=== PATIENT | female | born 1980 | race Caucasian/White ===

== ENCOUNTER → 2017-03-06 | Outpatient (CLI) | payer BC, OTHER ==
[~2017-03-06] MED LIST: CETI10CA PO; HYDR-3583 PO; LEVA15HF2 IH
== END ==
DX: N83.202 Unspecified ovarian cyst, left side (principal); N93.8 Other specified abnormal uterine and vaginal bleeding

== ENCOUNTER → 2018-03-06 | Outpatient (CLI) | payer BC, OTHER ==
--- NOTE | 2018-03-06 13:23 | Diagnostic Imaging Report ---
PROCEDURE: US Non-OB pelvis comp/trans. TECHNIQUE: Multiple real-time grayscale images were obtained of the pelvis in various projections endovaginally. Transabdominal imaging was also performed. INDICATION: Abnormal uterine bleeding. FINDINGS: The uterus measures 7.7 x 5.3 x 3.9 cm. The endometrium is 6 mm in thickness. No uterine mass is identified. The right ovary measures 3.1 x 2.9 x 1.8 cm, and the left ovary measures 5.5 x 3.0 x 2.3 cm. The left ovary does contain a septated cyst measuring approximately 4.6 x 2.1 x 2.9 cm. No other adnexal mass is seen. There is no free fluid. IMPRESSION: 4.6 cm septated left ovarian cyst. Followup ultrasound in 4-6 weeks is recommended to confirm stability and/or clearing. Dictated by: Dictated on workstation # [id number]
== END ==
LOC: RAD 12:24
PROVIDERS: ATTEND Family Medicine
DX: N83.292 Other ovarian cyst, left side (principal)
CPT/HCPCS: 76830; 76856

== ENCOUNTER → 2018-05-27 | Outpatient (CLI) | payer BC ==
--- NOTE | 2018-05-27 14:14 | Diagnostic Imaging Report ---
PROCEDURE: US Non-ob pelvis comp/trans. TECHNIQUE: Multiple realtime grayscale images were obtained of the pelvis in various projections endovaginally. Transabdominal imaging was also performed. INDICATION: Followup septated left ovarian cyst. COMPARISON: Correlation is made with pelvic ultrasound from 03/06/2018. FINDINGS: The uterus measures 7.2 x 5.5 x 3.8 cm. Endometrium is 4 mm in thickness. No uterine mass is identified. The right ovary measures 4.3 x 1.9 x 1.9 cm and the left ovary measures 3.5 x 2.3 x 2.2 cm. Right ovary is unremarkable and demonstrates blood flow. The previously noted cyst involving the left ovary has decreased in size, now measuring 1.9 x 1.3 x 1.8 cm compared with 4.6 x 2.1 x 2.9 cm. There is blood flow to the left ovary. No other adnexal mass or free fluid is seen. IMPRESSION: Decrease in size of left ovarian cyst when compared with examination from 03/06/2018. Dictated by: Dictated on workstation # [id number]
== END ==
LOC: RAD 12:41
PROVIDERS: ATTEND Family Medicine
DX: N83.292 Other ovarian cyst, left side (principal)
CPT/HCPCS: 76830; 76856

== ENCOUNTER → 2019-01-07 | Outpatient (CLI) | payer BC ==
--- NOTE | 2019-01-07 15:39 | Diagnostic Imaging Report ---
PROCEDURE: US non-OB pelvis comp/trans. TECHNIQUE: Multiple real-time grayscale images were obtained of the pelvis in various projections endovaginally. Transabdominal imaging was also performed. INDICATION: Abnormal uterine bleeding. COMPARISON: Comparison is made with prior pelvic ultrasound from 05/27/2018. FINDINGS: Uterus measures 10.2 x 5.1 x 4.8 cm. No myometrial mass is seen. Endometrium is 11 mm in thickness. The right ovary measures 3.1 x 3.0 x 2.0 cm, and the left ovary measures 4.1 x 2.8 x 2.8 cm. There is a septated cystic mass in the left ovary measuring 2.8 x 1.8 x 2.7 cm. Cyst at this location on prior study measured approximately 1.8 cm in diameter. Right ovary is unremarkable. There is blood flow to the ovaries. No free fluid is seen. IMPRESSION: Septated cystic mass in the left ovary, increased in size when compared with prior ultrasound from 05/27/2018. Dictated by: Dictated on workstation # [id number]
== END ==
LOC: RAD 13:01
PROVIDERS: ATTEND Family Medicine
DX: N83.202 Unspecified ovarian cyst, left side (principal)
CPT/HCPCS: 76830; 76856

== ENCOUNTER 2019-03-26 11:37 | Outpatient (CLI) | payer BC ==
[~2019-03-26] VITALS: Ht 167.6 cm; Wt 98.4 kg
[2019-03-26 11:47] VITALS: BP 134/83
[2019-03-26 12:08] LABS: BASOPHILS % (AUTO) 0 % (0-10); EOSINOPHILS # (AUTO) 0.1 10^3/uL (0.0-0.3); EOSINOPHILS % (AUTO) 1 % (0-10); HEMATOCRIT 37 % (35-52); HEMOGLOBIN 12.7 G/DL (11.5-16.0); LYMPHOCYTES # (AUTO) 2.3 X 10^3 (1.0-4.0); LYMPHOCYTES % (AUTO) 21 % (12-44); MEAN CORPUSCULAR HEMOGLOBIN 30 PG (25-34); MEAN CORPUSCULAR HGB CONC 34 G/DL (32-36); MEAN CORPUSCULAR VOLUME 87 FL (80-99); MEAN PLATELET VOLUME 10.2 FL (7.4-10.4); MONOCYTES # (AUTO) 0.8 X 10^3 (0.0-1.0); MONOCYTES % (AUTO) 8 % (0-12); NEUTROPHILS # (AUTO) 7.4 X 10^3 (1.8-7.8); NEUTROPHILS % (AUTO) 70 % (42-75); PLATELET COUNT 293 10^3/uL (130-400); RED CELL DISTRIBUTION WIDTH 12.7 % (10.0-14.5); WHITE BLOOD COUNT 10.6 10^3/uL (4.3-11.0)
[2019-03-26] MEDS ORDERED: CHOL200059 PO (13:17)
[2019-03-26] MEDS ORDERED: MONT10TA24 PO (13:17)
[2019-03-26] MEDS ORDERED: FERR325T5 PO (13:17)
[2019-03-26] MEDS ORDERED: CETI10TA17 PO (13:17)
[2019-03-26] MEDS ORDERED: MULT-141 PO (13:17)
[2019-04-01] MEDS ORDERED: HYDR-34 PO (07:27)
[2019-04-01] MEDS ORDERED: SIME80TA16 PO (07:27)
[2019-04-01] MEDS ORDERED: DOCU100C37 PO (07:27)
[2019-04-01] MEDS ORDERED: IBUP-844 PO (07:27)
== END 2019-03-26 12:05 | disposition home or self-care (01) ==
LOC: PREOP 11:37
PROVIDERS: ATTEND Obstetrics & Gynecology
DX: Z01.812 Encounter for preprocedural laboratory examination (principal); N93.8 Other specified abnormal uterine and vaginal bleeding; N85.2 Hypertrophy of uterus; N94.6 Dysmenorrhea, unspecified
CPT/HCPCS: 36415; 85025; 86850; 86870; 86900; 86901; 86902; 87081

== ENCOUNTER 2019-04-01 06:20 | Day surgery (SDC) | payer BC ==
[~2019-04-01] VITALS: Ht 167.6 cm; Wt 98.4 kg
[2019-04-01] VITALS (13 sets, daily range): BP systolic 102–142; BP diastolic 60–88
[~2019-04-01 06:20] MED LIST changes: +BUPIVACAINE 0.25% 30 ML (SENSORCAINE) VIAL ONE; +CETI10TA17 PO; +CHOL200059 PO; +FERR325T5 PO; +MONT10TA24 PO; +MULT-141 PO
[2019-04-01] MEDS ORDERED: LACTATED RINGERS 1,000 ML IV ONE (06:22)
[2019-04-01] MEDS ORDERED: metroNIDAZOLE 500MG/100ML IVPB 100 ML IV ONE (06:30)
[2019-04-01] MEDS ORDERED: ceFAZolin 2 GM/50 ML NS 50 ML IV ONE (06:30)
--- OUTSIDE RECORDS SUMMARY | 2019-04-01 06:42 | XMS REPORT | Continuity of Care Document ---
Author Organization Unknown Address Unknown Allergies Active Description Code Type Severity Reaction Onset Reported/Identified Relationship to Patient Clinical Status Yes Sulfa (Sulfonamide Antibiotics) [id number] Drug Allergy Unknown N/A 12/24/2007 Yes latex [id number] Drug Allergy Unknown N/A 12/25/2010 Medications There is no data. Problems Date Dx Coded Attending Type Code Diagnosis Diagnosed By 06/26/2009 Ot 648.91 06/26/2009 Ot 648.92 06/26/2009 Ot 664.01 06/26/2009 Ot 788.20 06/26/2009 Ot V02.51 06/26/2009 Ot V06.1 06/26/2009 Ot V27.0 07/29/2014 Ot 649.63 09/05/2014 HYUN CORREA, FLORENCE Stafford Ot 626.4 03/04/2017 HYUN CORREA, FLORENCE Stafford Ot 626.4 IRREGULAR MENSTRUATION 03/06/2017 HYUN CORREA, FLORENCE Stfaford Ot 626.4 IRREGULAR MENSTRUATION 06/26/2017 HYUN CORREA, FLORENCE Stafford Ot 626.4 IRREGULAR MENSTRUATION 06/27/2017 HYUN CORREA, FLORENCE Stafford Ot 626.4 IRREGULAR MENSTRUATION 06/30/2017 HYUN CORREA, FLORENCE Stafford Ot 626.4 IRREGULAR MENSTRUATION 03/04/2018 USMAN SHABAZZ MD Ot N83.202 UNSPECIFIED OVARIAN CYST, LEFT SIDE 03/04/2018 USMAN SHABAZZ MD Ot N93.8 OTHER SPECIFIED ABNORMAL UTERINE AND VAG 03/09/2018 USMAN SHABAZZ MD Ot N83.292 OTHER OVARIAN CYST, LEFT SIDE 03/09/2018 USMAN SHABAZZ MD Ot N83.292 OTHER OVARIAN CYST, LEFT SIDE 03/17/2018 USMAN SHABAZZ MD Ot N83.292 OTHER OVARIAN CYST, LEFT SIDE 05/28/2018 USMAN SHABAZZ MD Ot N83.292 OTHER OVARIAN CYST, LEFT SIDE 06/10/2018 USMAN SHABAZZ MD, Ot N83.292 OTHER OVARIAN CYST, LEFT SIDE 01/07/2019 USMAN SHABAZZ MD, Ot N83.202 UNSPECIFIED OVARIAN CYST, LEFT SIDE 01/07/2019 USMAN SHABAZZ MD, Ot N93.8 OTHER SPECIFIED ABNORMAL UTERINE AND VAG 01/07/2019 USMAN SHABAZZ MD, Ot N83.292 OTHER OVARIAN CYST, LEFT SIDE 01/07/2019 USMAN SHABAZZ MD, Ot N83.292 OTHER OVARIAN CYST, LEFT SIDE 01/07/2019 USMAN SHABAZZ MD, Ot N83.202 UNSPECIFIED OVARIAN CYST, LEFT SIDE 01/07/2019 USMAN SHABAZZ MD, Ot N83.202 UNSPECIFIED OVARIAN CYST, LEFT SIDE 01/20/2019 USMAN SHABAZZ MD, Ot N83.202 UNSPECIFIED OVARIAN CYST, LEFT SIDE Procedures There is no data. Results Test Result Range Complete blood count (CBC) with automated white blood cell (WBC) differential - 03/26/19 11:56 Blood leukocytes automated count (number/volume) 10.6 10*3/uL 4.3-11.0 Blood erythrocytes automated count (number/volume) 4.23 10*6/uL 4.35-5.85 Venous blood hemoglobin measurement (mass/volume) 12.7 g/dL 11.5-16.0 Blood hematocrit (volume fraction) 37 % 35-52 Automated erythrocyte mean corpuscular volume 87 [foz_us] 80-99 Automated erythrocyte mean corpuscular hemoglobin (mass per erythrocyte) 30 pg 25-34 Automated erythrocyte mean corpuscular hemoglobin concentration measurement (mass/volume) 34 g/dL 32-36 Automated erythrocyte distribution width ratio 12.7 % 10.0- 14.5 Automated blood platelet count (count/volume) 293 10*3/uL 130-400 Automated blood platelet mean volume measurement 10.2 [foz_us] 7.4-10.4 Automated blood neutrophils/100 leukocytes 70 % 42-75 Automated blood lymphocytes/100 leukocytes 21 % 12-44 Blood monocytes/100 leukocytes 8 % 0-12 Automated blood eosinophils/100 leukocytes 1 % 0-10 Automated blood basophils/100 leukocytes 0 % 0-10 Blood neutrophils automated count (number/volume) 7.4 10*3 1.8-7.8 Blood lymphocytes automated count (number/volume) 2.3 10*3 1.0-4.0 Blood monocytes automated count (number/volume) 0.8 10*3 0.0- 1.0 Automated eosinophil count 0.1 10*3/uL 0.0-0.3 Automated blood basophil count (count/volume) 0.0 10*3/uL 0.0-0.1 Methicillin resistant Staphylococcus aureus (MRSA) screening culture - 03/26/19 11:56 Methicillin resistant Staphylococcus aureus (MRSA) screening culture NEG NRG Blood type T Indirect antibody screen panel - 03/26/19 11:56 ABO+Rh group AP NRG Blood group antibody screen POSITIVE NRG Blood group antibodies identified - 03/26/19 11:56 Blood group antibodies identified M NRG Reference lab test results - 03/26/19 11:56 * Reference lab test results SEE SEPARATE REPORT NRG Encounters ACCT No. Visit Date/Time Discharge Status Pt. Type Provider Facility Loc./Unit Complaint [id number] 03/26/2019 11:37:00 03/26/2019 12:05:00 DIS Outpatient MARICARMEN HOLDER DO [facility] PREOP ABNORMAL UTERINE BLEEDING [id number] 01/07/2019 13:01:00 01/07/2019 23:59:59 CLS Outpatient USMAN SHABAZZ MD [facility] RAD AUB [id number] 05/27/2018 13:00:00 05/27/2018 23:59:59 CLS Outpatient USMAN SHABAZZ MD [facility] RAD SEPTATED CYST L OVARIAN [id number] 03/06/2018 12:24:00 03/06/2018 23:59:59 CLS Outpatient USMAN SHABAZZ MD [facility] RAD ABNORMAL UTERAL BLEEDING [id number] 03/06/2017 16:19:00 03/06/2017 23:59:59 CLS Outpatient USMAN SHABAZZ MD [facility] RAD DUB [id number] 08/17/2014 11:22:00 08/17/2014 23:59:59 CLS Outpatient FLORENCE PURVIS MD [facility] RAD IRREGULAR BLEEDING [id number] 04/01/2019 08:45:00 PEN Preadmit MARICARMEN HOLDER DO [facility] ABNORMAL UTERINE BLEEDING [id number] 06/24/2009 13:41:00 Document Registration [id number] 03/01/2009 15:10:00 Document Registration
[2019-04-01] MEDS ORDERED: DEXAMETHASONE 10 MG/ML (DECADRON) 1 ML VIAL ONE (06:43)
[2019-04-01] MEDS ORDERED: LIDOCAINE PF 2% 5 ML (XYLOCAINE) VIAL ONE (06:43)
[2019-04-01] MEDS ORDERED: SEVOFLURANE (ULTANE) 15 ML INHAL SOLN ONE ×6 (06:43→08:58)
[2019-04-01] MEDS ORDERED: proPOfol 200 MG/20 ML (DIPRIVAN) VIAL IV ONE (06:43)
[2019-04-01] MEDS ORDERED: ONDANSETRON 4 MG/2 ML (SDV) Z0FRAN ONE (06:43)
[2019-04-01] MEDS ORDERED: fentaNYL INJECTION 100 MCG/2 ML AMP ONE (06:44)
[2019-04-01] MEDS ORDERED: MIDAZOLAM 2 MG/2 ML (VERSED) VIAL ONE (06:44)
[2019-04-01] MEDS ORDERED: metroNIDAZOLE 500MG/100ML IVPB 100 ML ONE (06:45)
[2019-04-01] MEDS ORDERED: ceFAZolin 2 GM/50 ML NS 50 ML ONE (06:45)
[2019-04-01] MEDS ORDERED: GLYCOPYRROLATE 0.2 MG/ML (ROBINUL) 2 ML VIAL ONE (06:53)
[2019-04-01] MEDS ORDERED: NEOSTIGMINE 3 MG/3 ML VIAL ONE (06:53)
[2019-04-01] MEDS ORDERED: THROMBIN 5,000 UNIT (RECOTHROM) VIAL ONE (06:57)
--- NOTE | 2019-04-01 07:02 | Progress Note-Pre Operative ---
Pre-Operative Progress Note H&P Reviewed The H&P was reviewed, patient examined and no changes noted. Date Seen by Provider: Apr 01, 2019 Time Seen by Provider: 07:05 Date H&P Reviewed: Apr 01, 2019 Time H&P Reviewed: 07:00 Pre-Operative Diagnosis: MARICARMEN ISBELL DO Apr 01, 2019 7:02 am
[2019-04-01] MEDS ORDERED: LACTATED RINGERS 1,000 ML IV SCH (07:22)
--- NOTE | 2019-04-01 07:25 | Discharge Inst-Women's Service ---
Discharge Inst-Women's Serv Depart Medication/Instructions New, Converted or Re-Newed RX: RX on Chart Consults/Follow Up Additional Follow Up: Yes Orders/Referrals Dr. Morejon in 7-10 days and in 8 weeks Activity Activity: Activity as Tolerated Driving Instructions: No Driving for 1 Week NO SMOKING: NO SMOKING Nothing Inside Vagina: No Douching, No Deary, No Tampons Diet Discharge Diet: No Restrictions Symptoms to Report to : Bleeding Excessive, Pain Increased, Fever Over 101 Degrees F, Vaginal Bleeding Increase, Questions/Concerns For Any Problems or Questions: Contact Your Physician Skin/Wound Care Infection Signs and Symptoms: Increased Redness, Foul Odor of Wound, Increased Drainage, Skin Itchy or Has a Rash, Increased Swelling, Temperature Above 101 F Operative Area Clean and Dry: Keep Incision Clean/Dry Stitches/Willis/Dermabond: Dermabond, Care of Stitches Bathing Instructions: MARICARMEN Vizcaino DO Apr 01, 2019 07:25
[2019-04-01] MEDS ORDERED: HYDR-34 PO (07:27)
[2019-04-01] MEDS ORDERED: DOCU100C37 PO (07:27)
[2019-04-01] MEDS ORDERED: IBUP-844 PO (07:27)
[2019-04-01] MEDS ORDERED: SIME80TA16 PO (07:27)
[2019-04-01] MEDS ORDERED: DOCUSATE SODIUM 100 MG (COLACE) CAP PO PRN (07:30)
[2019-04-01] MEDS ORDERED: CHLORASEPTIC LOZENGE MM PRN (07:30)
[2019-04-01] MEDS ORDERED: ANTACID SUSP 30 ML UDC (MYLANTA) PO PRN (07:30)
[2019-04-01] MEDS ORDERED: ONDANSETRON 4 MG/2 ML (SDV) Z0FRAN IV PRN (07:30)
[2019-04-01] MEDS ORDERED: ZOLPIDEM 5 MG (AMBIEN) TAB PO PRN (07:30)
[2019-04-01] MEDS ORDERED: SIMETHICONE 80 MG (MYLICON) CHEW PO PRN (07:30)
[2019-04-01] MEDS: LACTATED RINGERS 1,000 ML IV PRN ×2 (07:48→12:22)
[2019-04-01] MEDS ORDERED: HYDROmorphone 2 MG/ML VIAL (DILAUDID) ONE (07:51)
[2019-04-01] MEDS ORDERED: ROCURONIUM 10 MG/ML 5 ML SYRINGE IV ONE (08:12)
[2019-04-01] MEDS ORDERED: KETOROLAC 30 MG/ML VIAL ONE (09:06)
[2019-04-01] MEDS ORDERED: HYDROmorphone 2 MG/ML VIAL (DILAUDID) IV ONE (09:15)
[2019-04-01] MEDS ORDERED: ONDANSETRON 4 MG/2 ML (SDV) Z0FRAN IVP PRN (09:15)
[2019-04-01] MEDS: KETOROLAC 30 MG/ML VIAL IV PRN ×2 (09:15→17:10)
--- NOTE | 2019-04-01 09:55 | NUR ---
pt transferred to room 305 via bed with PACU staff @ side. report received from TYLER Norris. care assumed of pt.
--- NOTE | 2019-04-01 10:13 | NUR ---
initial assessment completed. see interventions for further. lapsites x3 D/I covered with Band-Aids. parker to DD with dark, yellow urine noted. sediment noted in bottom of catheter bag. SCD's to LE's. IV site patent. IV tubing changed. @ side. call light within reach.
--- NOTE | 2019-04-01 13:28 | NUR ---
parker catheter dc'd. 100cc cloudy urine noted. laine-care offered. v-pad and panties in place.
--- NOTE | 2019-04-01 14:05 | NUR ---
here. Addendum: 04/01/19 at 1802 by FLORENCIO GIPSON RN error- wrong time charted. to see pt @ [id number].
--- NOTE | 2019-04-01 14:10 | Anesthesia-General Post-Op ---
General Patient Condition Mental Status/LOC: Same as Preop Cardiovascular: Satisfactory Nausea/Vomiting: Absent Respiratory: Satisfactory Pain: Controlled Complications: Absent Post Op Complications Complications None Follow Up Care/Instructions Patient Instructions None needed. Anesthesia/Patient Condition Patient Condition Patient is doing well, no complaints, stable vital signs, no apparent adverse anesthesia problems. No complications reported per nursing. IVELISSE FLETCHER CRNA Apr 01, 2019 14:10
--- NOTE | 2019-04-01 14:35 | OPERATIVE REPORT ---
DATE OF SERVICE: 04/01/2019 PREOPERATIVE DIAGNOSES: 1. A 38-year-old female with abnormal uterine bleeding. 2. Dysmenorrhea. 3. Pelvic pain. POSTOPERATIVE DIAGNOSES: 1. A 38-year-old female with abnormal uterine bleeding. 2. Dysmenorrhea. 3. Pelvic pain. 4. Right ovarian cyst. PROCEDURE PERFORMED: Robotic-assisted total laparoscopic hysterectomy with bilateral salpingectomy and right ovarian cystotomy. SURGEON: Ahsan Holder DO ANESTHESIA: General endotracheal. ESTIMATED BLOOD LOSS: 50 mL. URINE OUTPUT: 50 mL clear at the end of the procedure. FLUIDS: 1500 mL lactated Ringer solution. FINDINGS: Grossly normal appearing external female genitalia, grossly normal appearing bilateral fallopian tubes and uterus with right ovarian cyst filled with clear serous fluid. Grossly normal appearing left ovary. Grossly normal appearing upper abdominal anatomy. SPECIMEN SENT: Uterus, bilateral fallopian tubes. INDICATIONS FOR PROCEDURE: Please see my preoperative note for complete details pertaining to the patient's preoperative course and plan of care. OPERATIVE REPORT IN DETAIL: Once in the operating room, general anesthesia was found to be adequate, she was placed in dorsal lithotomy position, prepped and draped in normal sterile fashion. A timeout was performed. A Taylor catheter was placed using sterile technique. A weighted speculum was inserted into the patient's vagina. Right angle retractor was used to visualize the cervix, which was grasped at 12 o'clock position using a long Allis clamp. I then gently sounded the uterine cavity, depth was sounded to be 8 cm. I selected 8 cm Jolene uterine manipulator tip and a 4 cm colpotomy ring. The 8 cm tip was advanced into the uterus where the balloon was deployed and the colpotomy ring was advanced around the vaginal fornix. Excellent bimanual manipulation is noted at this point. I removed all the instruments from the patient's vagina other than the Jolene uterine manipulator and the Taylor catheter. I performed a change of gloves and took my attention to the abdomen where infraumbilically, I infiltrated this area using 0.25% Marcaine by making an 8 mm incision with a knife and directed Veress needle through the incision until intraperitoneal placement was confirmed using saline drop test. I proceeded with insufflation using CO2 gas. Opening pressure of 5 mmHg was noted. I proceeded to max pressure of 15 mmHg, at which point, I removed the Veress needle and introduced an 8 mm blunt da Mayda camera trocar. Once this was in place, I am able to confirm intraperitoneal placement using da Mayda laparoscope. I had the patient placed in steep Trendelenburg after briefly scanning the upper abdominal anatomy, which appears to be normal. There is no evidence of damage upon my entry. Once the patient was in steep Trendelenburg, I am able to visualize the pelvic anatomy, which is described in my findings above. I placed two lateral trocars. These were both 8 mm trocars, approximately 10 cm lateral to my infraumbilical trocar. Once these incisions were made and the trocars were placed under direct visualization of the laparoscope and the da Mayda robot was brought in and docked in appropriate fashion. I placed the fenestrated bipolar graspers in the left hand and monopolar marvel in the right hand and proceeded with first opening and removing a portion of the cyst wall of the right ovary. Clear fluid was noted at that time. I then performed the following dissection bilaterally. Starting at the uteroovarian ligament, I bipolar cauterized and transected this using the bipolar cautery and monopolar marvel. I then created a window in the mesosalpinx and using monopolar cautery, I take this laterally amputating the fallopian tube from the mesosalpinx. I then grasped the round ligament. I bipolar cauterized and transected this as well. I then grasped the entire broad ligament, bipolar cauterized and transected this using the fenestrated bipolar graspers and the monopolar marvel down to the level of the lower uterine segment. At which point, I the anterior and posterior leaflets of the broad ligament. Anteriorly, this was taken down to the anterior vaginal fornix. Posterior leaflet was taken down to the posterior vaginal fornix. This allows me to skeletonize the uterine vessels laterally, which I then bipolar cauterized and transected using the monopolar marvel. I then created a colpotomy at 12 o'clock position using monopolar marvel and took this circumferentially around the vaginal fornix amputating the cervix from the vagina. The entire specimen was then removed through the vagina. I then proceeded with closing the vaginal cuff and the lateral vaginal apices using 2-0 Vicryl suture in a [id number] fashion colposuspending into the uterosacral ligaments. I then closed the remainder of the vaginal cuff using the 2-0 V-Loc suture. After which, there was no active bleeding noted from any of my dissection planes. I undocked the da Mayda robot and scrubbed back into the case where I proceeded laparoscopically by copiously irrigating the pelvis using normal saline. Once again, there was no active bleeding noted from any of my dissection planes. I placed FloSeal hemostatic agent over all my planes of dissection as the patient was taken out of steep Trendelenburg. I removed the lateral trocars under direct visualization of the laparoscope. The infraumbilical trocar was left in place to release insufflation and to introduce 10 mL of 0.25% Marcaine for postoperative pain management. I then removed this trocar as well. The skin was then reapproximated using 4-0 Monocryl in interrupted subcuticular stitches. Dermabond was applied to incision and Band-Aids were placed over the incisions as well. Taylor catheter was left in place. The patient tolerated the procedure well and sent to recovery in stable condition. Lap and sponge counts were correct at the end of the procedure. Instrument counts were correct as well. Two grams of Ancef, 500 mg of Flagyl were given preoperatively for infection prophylaxis. Job ID: [id number] DocumentID: [id number] Dictated Date: 04/01/2019 10:51:35 Pot Operator Date: 04/01/2019 14:34:30 Dictated By: AHSAN HOLDER DO
--- NOTE | 2019-04-01 16:20 | NUR ---
assisted up to BR. c/o slight dizziness with ambulation. feels "urge" to void. "unable to start stream." laine-care instructions given. assisted back to bed.
--- NOTE | 2019-04-01 17:15 | NUR ---
assisted up to BR. sprayed approx. 100cc warm water over perineum, pt unable to void. "I have the urge. I did this when I had my kids. I had to have a catheter put back in cause I couldn't pee till the next day." voided 300cc urine. reports bladder doesn't feel "empty." assisted back to bed.
--- NOTE | 2019-04-01 18:20 | NUR ---
Assisted up to BR. voided 400cc. laine-care offered. IV converted to HL
--- NOTE | 2019-04-01 18:30 | NUR ---
was called with pt status update.
--- NOTE | 2019-04-01 19:20 | NUR ---
report given to TYLER Isaac.
[2019-04-01] MEDS: HYDROcodone/APAP 7.5 MG/325 MG (LORTAB, LORCET PLUS) TABLET PO PRN (21:10)
[2019-04-02] MEDS ORDERED: IBUPROFEN 600 MG (MOTRIN) TAB PO PRN (00:15)
[2019-04-02 02:40] VITALS: BP 114/70
[2019-04-02] MEDS: HYDROcodone/APAP 7.5 MG/325 MG (LORTAB, LORCET PLUS) TABLET PO PRN (03:06)
--- NOTE | 2019-04-02 06:57 | Anesthesia-General Post-Op ---
General Patient Condition Mental Status/LOC: Same as Preop Cardiovascular: Satisfactory Nausea/Vomiting: Absent Respiratory: Satisfactory Pain: Controlled Complications: Absent Post Op Complications Complications None Follow Up Care/Instructions Patient Instructions None needed. Anesthesia/Patient Condition Patient Condition Patient is doing well, no complaints, stable vital signs, no apparent adverse anesthesia problems. No complications reported per nursing. MONTY VEGA CRNA Apr 02, 2019 06:57
--- NOTE | 2019-04-02 08:14 | NUR ---
Dr. Morejon here. Plan for D/C home.
[2019-04-02 08:50] VITALS: BP 123/70
--- NOTE | 2019-04-02 09:30 | NUR ---
Discharge instructions explained to pt with copy provided to pt along with prescriptions. Prescriptions explained. Pt notified of follow up appts. Pt verbalizes understanding of instructions, and signs to verify. Denies needs or concerns at this time.
--- NOTE | 2019-04-02 09:40 | NUR ---
Pt taken off unit via wheelchair per OB staff, accompanied by S.O. to private vehicle. All personal belongings with pt. No s/s of distress noted.
== END 2019-04-02 09:40 | disposition home or self-care (01) ==
LOC: SDC 06:20 → WS 09:55 → SDC 04-02 09:40
PROVIDERS: ATTEND Obstetrics & Gynecology
DX: N83.8 Other noninflammatory disorders of ovary, fallopian tube and broad ligament (principal); N83.201 Unspecified ovarian cyst, right side; N72 Inflammatory disease of cervix uteri; D50.0 Iron deficiency anemia secondary to blood loss (chronic); N85.2 Hypertrophy of uterus; N94.5 Secondary dysmenorrhea; J45.909 Unspecified asthma, uncomplicated; Z88.2 Allergy status to sulfonamides
CPT/HCPCS: 36415; 84703; 86850; 86870; 86900; 86901; 94664

== ENCOUNTER 2019-04-10 16:30 | Emergency (ER) | payer BC ==
[~2019-04-10] VITALS: Ht 167.6 cm; Wt 99.8 kg
[~2019-04-10 16:30] MED LIST changes: -BUPIVACAINE 0.25% 30 ML (SENSORCAINE) VIAL ONE; +DOCU100C37 PO; +HYDR-34 PO; +IBUP-844 PO; +SIME80TA16 PO
--- NOTE | 2019-04-10 17:43 | ED General ---
General Chief Complaint: Skin/Wound Problems Stated Complaint: POST SURGICAL ISSUES HYSTERECTOMY Nursing Triage Note: pt has three incisions from a hysterectomy, all three incisions appear inflammed, pt verbalized concern of adhesive allergy. pt states that she has felt feverish intermittently, denies purulent drainage from the sites or from the vagina. states she has had strong smelling urine. pt currently on po antibiotics given post surg. Nursing Sepsis Screen: No Definite Risk Source of Information: Patient Exam Limitations: No Limitations History of Present Illness Date Seen by Provider: Apr 10, 2019 Time Seen by Provider: 17:15 Initial Comments Us 38-year-old woman presents to the emergency room with complaints of rash around her incision sites after a vaginal/laparoscopic hysterectomy on April 01. The rash started a few days after surgery and has been escalating. Infection was suspected and she was placed on Keflex. However, the rash has intensified. The rash is very deep red around the incisions. She then has scattered punctate lesions in the area that would have involved the surgical prep. Patient presumes to be experiencing a reaction to the adhesive or incisional glue. The rash is fairly pruritic. She has not improved much with use of Benadryl. Frequent Benadryl is making her feel ill and tired. She denies any fever. Allergies and Home Medications Allergies Coded Allergies: Sulfa (Sulfonamide Antibiotics) (Verified Allergy, Unknown, 12/24/07) Latex (Unverified Allergy, 12/25/10) Home Medications Cetirizine HCl 10 Mg Tablet, 10 MG PO DAILY, (Reported) Cholecalciferol (Vitamin D3) 2,000 Unit Tablet, 4,000 UNIT PO DAILY, (Reported) take 2 (2,000unit) tabs Docusate Sodium 100 Mg Capsule, 100 MG PO BID PRN for CONSTIPATION-1ST LINE Prescribed by: MARICARMEN HOLDER on 04/01/19726 Ferrous Sulfate 325 Mg Tablet.dr, 325 MG PO DAILY, (Reported) Hydrocodone Bit/Acetaminophen 1 Ea Tablet, 2 EA PO Q6H PRN for Pain-See Instructions Prescribed by: MARICARMEN HOLDER on 04/01/19726 Ibuprofen 600 Mg Tablet, 600 MG PO Q6H PRN for PAIN-MODERATE Prescribed by: MARICARMEN HOLDER on 04/01/19726 Montelukast Sodium 10 Mg Tablet, 10 MG PO HS, (Reported) Multivit with Calcium,Iron,Min 1 Each Tablet, 1 EACH PO DAILY, (Reported) Prednisone 10 Mg Tab, 1 TAB PO UD Take 4 tabs daily for 2 days, then 3 tabs daily for 2 days, then 2 tabs daily for 2 days, then 1 tab daily Prescribed by: JON ORTIZ on 04/10/19 1746 Simethicone 80 Mg Tab.chew, 40 MG PO TID PRN for INDIGESTION 2ND LINE Prescribed by: MARICARMEN HOLDER on 04/01/19 8842 Patient Home Medication List Home Medication List Reviewed: Yes Review of Systems Review of Systems Constitutional: no symptoms reported EENTM: no symptoms reported Respiratory: no symptoms reported Cardiovascular: no symptoms reported Gastrointestinal: no symptoms reported Genitourinary: no symptoms reported Musculoskeletal: no symptoms reported Skin: see HPI Psychiatric/Neurological: No Symptoms Reported Hematologic/Lymphatic: No Symptoms Reported Immunological/Allergic: no symptoms reported Past Hdevoce-Bosdhl-Bukxde Hx Past Med/Social Hx: Reviewed Nursing Past Med/Soc Hx Patient Social History Alcohol Use: Denies Use Recreational Drug Use: No Smoking Status: Never a Smoker Recent Foreign Travel: No Contact w/Someone Who Travel: No Recent Infectious Disease Expo: Yes Recent Hopitalizations: No Immunizations Up To Date Tetanus Booster (TDap): Less than 5yrs PED Vaccines UTD: Yes Seasonal Allergies Seasonal Allergies: Yes Past Medical History Surgeries: Yes (WISDOM TEETH AND APICECTOMY) Gallbladder, Hysterectomy Respiratory: No Cardiac: No Neurological: No : No 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 0.0oz. 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 It is minimally raised. There are also punctate lesions of similar color scattered throughout the abdomen and upper thighs in a distribution that would be consistent with the surgical prep.) Progress/Results/Core Measures Suspected Sepsis Recent Fever Within 48 Hours: Yes Infection Criteria Present: Suspected New Infection New/Unexplained Altered Menta: No Sepsis Screen: No Definite Risk SIRS Temperature:99.7 Pulse: 85 Respiratory Rate: 20 Blood Pressure 134 /76 Mean: 95 Results/Orders Vital Signs/I&O Capillary Refill : Less Than 3 Seconds Blood Pressure Mean: 95 Progress Note : Progress Note I am suspicious patient is experiencing a type II hypersensitivity reaction (similar to a poison юлия contact dermatitis) related to the surgical prep. The reaction may be more intense at the incision sites because the glue held the prep near the skin. I shared this hypothesis with the patient and suggested she try a steroid taper and follow up with Dr. HOLDER on Friday. Patient was agreeable to this plan. Departure Impression Primary Impression: Contact dermatitis Qualified Codes: L25.8 - Unspecified contact dermatitis due to other agents Disposition: 01 HOME, SELF-CARE Condition: Improved Departure-Patient Inst. Decision time for Depature: 17:40 Referrals: USMAN SHABAZZ MD (PCP/Family) Primary Care Physician Patient Instructions: Contact Dermatitis (DC) Add. Discharge Instructions: Use the steroid taper as prescribed. For itching you may continue using antihistamines. Nondrowsy antihistamine such as Claritin (loratadine) or Zyrtec (cetirizine) may be helpful. Pepcid (famotidine) also has antihistamine properties and may be helpful. Follow-up with Dr. HOLDER as early as you can next week. Return to care if you have worsening symptoms despite starting prednisone. Try to take prednisone early in the day with food or milk to avoid sleep disturbance and upset stomach. All discharge instructions reviewed with patient and/or family. Voiced understanding. Scripts Prednisone (Prednisone) 10 Mg Tab 1 TAB PO UD, #20 TAB Take 4 tabs daily for 2 days, then 3 tabs daily for 2 days, then 2 tabs daily for 2 days, then 1 tab daily Prov: JON TRINIDAD MD 04/10/19 Copy Copies To 1: MARICARMEN HOLDER JOSHUA T MD Apr 10, 2019 17:43
[2019-04-10] MEDS ORDERED: PRD10T PO (17:46)
[2019-04-10 18:00] VITALS: BP 109/85
== END 2019-04-10 18:00 | disposition home or self-care (01) ==
LOC: EDUNIT# 16:30 → ER 16:31
DX: L25.9 Unspecified contact dermatitis, unspecified cause (principal); F41.9 Anxiety disorder, unspecified; Z90.710 Acquired absence of both cervix and uterus; Z88.2 Allergy status to sulfonamides; Z91.040 Latex allergy status; Z82.49 Family history of ischemic heart disease and other diseases of the circulatory system
CPT/HCPCS: 99282

== ENCOUNTER 2019-07-27 15:21 | Emergency (ER) | payer BC ==
[~2019-07-27] VITALS: Ht 162.5 cm; Wt 95.2 kg
[~2019-07-27 15:21] MED LIST changes: +PRD10T PO
--- NOTE | 2019-07-27 15:36 | NUR ---
Dr Murillo sin room performing neuro exam.
[2019-07-27] MEDS ORDERED: LACTATED RINGERS 1,000 ML IV ONE (15:40)
[2019-07-27 15:49] LABS: BASOPHILS % (AUTO) 0 % (0-10); EOSINOPHILS % (AUTO) 0 % (0-10); HEMATOCRIT 39 % (35-52); HEMOGLOBIN 13.2 G/DL (11.5-16.0); LYMPHOCYTES # (AUTO) 1.6 X 10^3 (1.0-4.0); LYMPHOCYTES % (AUTO) 13 % (12-44); MEAN CORPUSCULAR HEMOGLOBIN 29 PG (25-34); MEAN CORPUSCULAR HGB CONC 34 G/DL (32-36); MEAN CORPUSCULAR VOLUME 85 FL (80-99); MEAN PLATELET VOLUME 10.5 FL (7.4-10.4); MONOCYTES % (AUTO) 8 % (0-12); NEUTROPHILS # (AUTO) 9.7 X 10^3 (1.8-7.8); NEUTROPHILS % (AUTO) 78 % (42-75); PLATELET COUNT 316 10^3/uL (130-400); RED CELL DISTRIBUTION WIDTH 12.4 % (10.0-14.5); WHITE BLOOD COUNT 12.4 10^3/uL (4.3-11.0)
[2019-07-27 15:59] LABS: ALANINE AMINOTRANSFERASE 15 U/L (0-55); ALBUMIN 4.6 GM/DL (3.2-4.5); ALKALINE PHOSPHATASE 86 U/L (40-136); BILIRUBIN,TOTAL 0.5 MG/DL (0.1-1.0); BUN/CREATININE RATIO 14; CALCIUM 9.7 MG/DL (8.5-10.1); CARBON DIOXIDE 12 MMOL/L (21-32); CHLORIDE 106 MMOL/L (98-107); CREATININE SERUM 0.99 MG/DL (0.60-1.30); GFR ESTIMATED > 60; GLUCOSE 126 MG/DL (70-105); MAGNESIUM 2.3 MG/DL (1.6-2.4); SODIUM 136 MMOL/L (135-145); TOTAL PROTEIN 8.4 GM/DL (6.4-8.2)
[2019-07-27 16:11] LABS: BILIRUBIN,URINE NEGATIVE (NEGATIVE); CLARITY,URINE CLEAR; COLOR,URINE YELLOW; GLUCOSE, URINE (UA) NEGATIVE (NEGATIVE); KETONES,URINE NEGATIVE (NEGATIVE); LEUKOCYTE ESTERASE ,URINE NEGATIVE (NEGATIVE); NITRITE,URINE NEGATIVE (NEGATIVE); PROTEIN,URINE 1+ (NEGATIVE)
[2019-07-27] MEDS ORDERED: KETOROLAC 30 MG/ML VIAL ONE (16:11)
[2019-07-27] MEDS ORDERED: ONDANSETRON 4 MG/2 ML (SDV) Z0FRAN ONE (16:11)
[2019-07-27 16:27] LABS: AMPHETAMINE SCREEN, URINE NEGATIVE (NEGATIVE); BARBITURATE SCREEN URINE NEGATIVE (NEGATIVE); BENZODIAZEPINES SCREEN URINE NEGATIVE (NEGATIVE); CANNABINOID SCREEN, URINE NEGATIVE (NEGATIVE); COCAINE SCREEN URINE NEGATIVE (NEGATIVE); METHADONE STAT NEGATIVE (NEGATIVE); METHAMPHETAMINE SCREEN URINE S NEGATIVE (NEGATIVE); OPIATE SCREEN URINE NEGATIVE (NEGATIVE); OXYCODONE STAT NEGATIVE (NEGATIVE); PROPOXYPHENE STAT NEGATIVE (NEGATIVE); TRICYCLIC ANTIDEPRESSANTS SCRE NEGATIVE (NEGATIVE)
[2019-07-27 16:27] LABS: ERYTHROCYTE SEDIMENTATION RATE 20 MM/HR (0-20)
[2019-07-27 16:34] LABS: BACTERIA,URINE TRACE /HPF; GRANULAR CASTS,URINE RARE /LPF; HYALINE CASTS, URINE RARE /LPF
--- NOTE | 2019-07-27 16:41 | Diagnostic Imaging Report ---
PROCEDURE: CT head without contrast. TECHNIQUE: Multiple contiguous axial images were obtained through the brain without the use of intravenous contrast. Auto Exposure Controls were utilized during the CT exam to meet ALARA standards for radiation dose reduction. INDICATION: Headache and dizziness as well as blurred vision. COMPARISON: No prior studies are available for comparison. FINDINGS: The ventricles and sulci are within normal limits. No sulcal effacement, midline shift, or hemorrhage is detected. The cisterns are patent. The visualized paranasal sinuses are clear. IMPRESSION: No acute intracranial process is detected. Dictated by: Dictated on workstation # [id number]
--- NOTE | 2019-07-27 16:59 | ED Neurological Problem ---
General Chief Complaint: Neurological Problems Stated Complaint: SEIZURE Nursing Triage Note: Pt to ED via EMS for seizure. Pt reports being at work when co-worker found pt slumped over at desk and foaming at the mouth. Pt denies hx of seizure. EMS reports temperature of 37.9 enroute to ED. Nursing Sepsis Screen: No Definite Risk Source: patient Exam Limitations: no limitations History of Present Illness Date Seen by Provider: Jul 27, 2019 Time Seen by Provider: 15:36 Initial Comments Here by EMS with report of seizure or syncope. Apparently she was found at her desk passed out. It was reported to her by the hospital receptionist that found her that she had and foaming at the mouth. There is concerns about seizure although it's not clearly demonstrated that she was seizing. She did report that she had nausea prior to this event and have been suffering from that over the past several days. Another family member has an illness that she is calling the flu (although seems to be related mostly to nausea and vomiting and GI upset) and she believes that she may have picked that up. She also gets nausea monthly with her time of cycle. She had a hysterectomy but still has her ovaries. Denies diarrhea. Denies injury. States that she's not been eating or drinking well due to the nausea over the last few days. Does have history of anxiety and can have panic sometimes Timing/Duration: 1/2 hour Severity: moderate Associated Symptoms: fatigue; No muscle spasms, No numbness in legs/feet, No tingling in legs/feet; weakness Allergies and Home Medications Allergies Coded Allergies: Sulfa (Sulfonamide Antibiotics) (Verified Allergy, Unknown, 12/24/07) Latex (Unverified Allergy, 12/25/10) Home Medications Cetirizine HCl 10 Mg Tablet, 10 MG PO DAILY, (Reported) Cholecalciferol (Vitamin D3) 2,000 Unit Tablet, 4,000 UNIT PO DAILY, (Reported) take 2 (2,000unit) tabs Docusate Sodium 100 Mg Capsule, 100 MG PO BID PRN for CONSTIPATION-1ST LINE Prescribed by: MARICARMEN HOLDER on 04/01/19726 Ferrous Sulfate 325 Mg Tablet.dr, 325 MG PO DAILY, (Reported) Hydrocodone Bit/Acetaminophen 1 Ea Tablet, 2 EA PO Q6H PRN for Pain-See Instructions Prescribed by: MARICARMEN HOLDER on 04/01/19726 Ibuprofen 600 Mg Tablet, 600 MG PO Q6H PRN for PAIN-MODERATE Prescribed by: MARICARMEN HOLDER on 04/01/19726 Montelukast Sodium 10 Mg Tablet, 10 MG PO HS, (Reported) Multivit with Calcium,Iron,Min 1 Each Tablet, 1 EACH PO DAILY, (Reported) Prednisone 10 Mg Tab, 1 TAB PO UD Take 4 tabs daily for 2 days, then 3 tabs daily for 2 days, then 2 tabs daily for 2 days, then 1 tab daily Prescribed by: JON ORTIZ on 04/10/191745 Simethicone 80 Mg Tab.chew, 40 MG PO TID PRN for INDIGESTION 2ND LINE Prescribed by: MARICARMEN HOLDER on 04/01/19726 Patient Home Medication List Home Medication List Reviewed: Yes Review of Systems Review of Systems Constitutional: see HPI; No chills, No fever; weakness Eyes: No Symptoms Reported Ears, Nose, Mouth, Throat: no symptoms reported Respiratory: No dyspnea on exertion, No short of breath, No wheezing Cardiovascular: No edema, No palpitations; syncope Gastrointestinal: No abdominal pain; nausea; No vomiting Genitourinary: no symptoms reported Musculoskeletal: No back pain, No muscle pain; muscle weakness; No neck pain Skin: no symptoms reported Psychiatric/Neurological: See HPI All Other Systems Reviewed Negative Unless Noted: Yes Past Mmnayen-Wofklp-Dhkqui Hx Past Med/Social Hx: Reviewed Nursing Past Med/Soc Hx Patient Social History Alcohol Use: Denies Use Recreational Drug Use: No 2nd Hand Smoke Exposure: No Recent Foreign Travel: No Contact w/Someone Who Travel: No Recent Infectious Disease Expo: No Recent Hopitalizations: No Immunizations Up To Date Tetanus Booster (TDap): Less than 5yrs PED Vaccines UTD: Yes Seasonal Allergies Seasonal Allergies: Yes Past Medical History Surgeries: Yes (WISDOM TEETH AND APICECTOMY) Gallbladder, Hysterectomy Respiratory: No Cardiac: No Neurological: No 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 0.0oz. 99.315284jf; 36.00 BMI Method:Stated General Appearance: WD/WN, no apparent distress HEENT: PERRL/EOMI, pharynx normal Neck: full range of motion, supple Respiratory: lungs clear, normal breath sounds Cardiovascular: regular rate, rhythm, no murmur Peripheral Pulses: 2+ Dorsalis Pedis (R), 2+ Left Dors-Pedis (L), 2+ Radial Pulses (R), 2+ Radial Pulses (L) Gastrointestinal: non tender, soft Back: normal inspection, no CVA tenderness, no vertebral tenderness Extremities: non-tender, normal inspection Neurologic/Psychiatric: alert, oriented x 3 Crainal Nerves: normal hearing, normal speech Coordination/Gait: normal finger to nose Motor/Sensory: no sensory deficit, no pronator drift, weak motor strength RLE, weak motor strength LLE Skin: normal color, warm/dry Progress/Results/Core Measures Results/Orders Lab Results Laboratory Tests Test 07/27/19 15:21 07/27/19 15:49 07/27/19 15:55 Range/Units White Blood Count 12.4 H 4.3-11.0 10^3/uL Red Blood Count 4.51 4.35-5.85 10^6/uL Hemoglobin 13.2 11.5-16.0 G/DL Hematocrit 39 35-52 % Mean Corpuscular Volume 85 80-99 FL Mean Corpuscular Hemoglobin 29 25-34 PG Mean Corpuscular Hemoglobin Concent 34 32-36 G/DL Red Cell Distribution Width 12.4 10.0-14.5 % Platelet Count 316 130-400 10^3/uL Mean Platelet Volume 10.5 H 7.4-10.4 FL Neutrophils (%) (Auto) 78 H 42-75 % Lymphocytes (%) (Auto) 13 12-44 % Monocytes (%) (Auto) 8 0-12 % Eosinophils (%) (Auto) 0 0-10 % Basophils (%) (Auto) 0 0-10 % Neutrophils # (Auto) 9.7 H 1.8-7.8 X 10^3 Lymphocytes # (Auto) 1.6 1.0-4.0 X 10^3 Monocytes # (Auto) 1.0 0.0-1.0 X 10^3 Eosinophils # (Auto) 0.0 0.0-0.3 10^3/uL Basophils # (Auto) 0.0 0.0-0.1 10^3/uL Erythrocyte Sedimentation Rate 20 0-20 MM/HR Sodium Level 136 135-145 MMOL/L Potassium Level 4.0 3.6-5.0 MMOL/L Chloride Level 106 98-107 MMOL/L Carbon Dioxide Level 12 L 21-32 MMOL/L Anion Gap 18 H 5-14 MMOL/L Blood Urea Nitrogen 14 7-18 MG/DL Creatinine 0.99 0.60-1.30 MG/DL Estimat Glomerular Filtration Rate > 60 BUN/Creatinine Ratio 14 Glucose Level 126 H 70-105 MG/DL Calcium Level 9.7 8.5-10.1 MG/DL Corrected Calcium 8.5-10.1 MG/DL Magnesium Level 2.3 1.6-2.4 MG/DL Total Bilirubin 0.5 0.1-1.0 MG/DL Aspartate Amino Transf (AST/SGOT) 21 5-34 U/L Alanine Aminotransferase (ALT/SGPT) 15 0-55 U/L Alkaline Phosphatase 86 40-136 U/L C-Reactive Protein High Sensitivity 0.56 H 0.00-0.50 MG/DL Total Protein 8.4 H 6.4-8.2 GM/DL Albumin 4.6 H 3.2-4.5 GM/DL Thyroid Stimulating Hormone (TSH) 0.30 L 0.35-4.94 UIU/ML D-Dimer 0.42 0.00-0.49 UG/ML Urine Color YELLOW Urine Clarity CLEAR Urine pH 5.0 5-9 Urine Specific [place] >=1.030 1.016-1.022 Urine Protein 1+ H NEGATIVE Urine Glucose (UA) NEGATIVE NEGATIVE Urine Ketones NEGATIVE NEGATIVE Urine Nitrite NEGATIVE NEGATIVE Urine Bilirubin NEGATIVE NEGATIVE Urine Urobilinogen 0.2 < = 1.0 MG/DL Urine Leukocyte Esterase NEGATIVE NEGATIVE Urine RBC (Auto) TRACE-I NEGATIVE Urine RBC NONE /HPF Urine WBC NONE /HPF Urine Squamous Epithelial Cells 5-10 /HPF Urine Crystals NONE /LPF Urine Bacteria TRACE /HPF Urine Casts PRESENT /LPF Urine Hyaline Casts RARE /LPF Urine Granular Casts RARE /LPF Urine Mucus NEGATIVE /LPF Urine Culture Indicated NO Urine Opiates Screen NEGATIVE NEGATIVE Urine Oxycodone Screen NEGATIVE NEGATIVE Urine Methadone Screen NEGATIVE NEGATIVE Urine Propoxyphene Screen NEGATIVE NEGATIVE Urine Barbiturates Screen NEGATIVE NEGATIVE Ur Tricyclic Antidepressants Screen NEGATIVE NEGATIVE Urine Phencyclidine Screen NEGATIVE NEGATIVE Urine Amphetamines Screen NEGATIVE NEGATIVE Urine Methamphetamines Screen NEGATIVE NEGATIVE Urine Benzodiazepines Screen NEGATIVE NEGATIVE Urine Cocaine Screen NEGATIVE NEGATIVE Urine Cannabinoids Screen NEGATIVE NEGATIVE Micro Results Microbiology 07/27/19 Influenza Types A,B Antigen (AURELIO) - Final, Complete My Orders Orders - DAVID FROST MD Cbc With Automated Diff (07/27/19 15:40) Comprehensive Metabolic Panel (07/27/19 15:40) Hs C Reactive Protein (07/27/19 15:40) Drug Screen Stat (Urine) (07/27/19 15:40) Magnesium (07/27/19 15:40) Thyroid Stimulating Hormone (07/27/19 15:40) Ua Culture If Indicated (07/27/19 15:40) Influenza A And B Antigens (07/27/19 15:40) Erythrocyte Sedimentation Rate (07/27/19 15:40) Ed Iv/Invasive Line Start (07/27/19 15:40) Lactated Ringers (Lr 1000 Ml Iv Solution (07/27/19 15:40) Ekg Tracing (07/27/19 15:40) Monitor-Rhythm Ecg Trace Only (07/27/19 15:40) Ct Head Wo (07/27/19 15:40) Fibrin Degradation Products (07/27/19 15:46) Ondansetron Injection (Zofran Injectio (07/27/19 16:11) Ketorolac Injection (Toradol Injection) (07/27/19 16:11) Free T4 (Free Thyroxine) (07/27/19 17:47) Medications Given in ED Current Medications Medications Dose Ordered Sig/Dahiana Route Start Time Stop Time Status Last Admin Dose Admin Ketorolac Tromethamine 30 mg STK-MED ONCE .ROUTE 07/27/19 16:11 07/27/19 16:13 DC 07/27/19 16:16 30 MG Lactated Ringer's 1,000 ml @ 0 mls/hr Q0M ONCE IV 07/27/19 15:40 07/27/19 15:42 DC 07/27/19 16:07 1,000 MLS/HR Ondansetron HCl 4 mg STK-MED ONCE .ROUTE 07/27/19 16:11 07/27/19 16:13 DC 07/27/19 16:14 4 MG Vital Signs/I&O 07/27/19 15:21 Pulse 108 Resp 17 B/P (MAP) 145/83 (103) Pulse Ox 96 O2 Delivery Room Air Blood Pressure Mean: 103 POS Progress Progress Note : Progress Note Seen and evaluated. IV, labs, UA, CT head, EKG and LR 1 L bolus ordered. Monitor patient. Toradol 30 mg IV and Zofran 4 mg IV for headache and nausea. 174: Patient is doing better now. She was able to stand on her own without difficulty. Headache has improved. Episode appears to be more related to syncope versus seizure and this was discussed at length with the patient. Given that she's had the nausea illness and decreased appetite and by mouth intake and findings of dehydration noted on labs, I do believe this is syncope related to vasovagal due to significant nausea episode. She had rapid return to normal mentation after the episode and is doing okay now. Labs otherwise don't show any significant findings. I will send a copy of the chart over to Dr. Shabazz. Free T4 pending. Patient is under a lot of stress right now. If she has a second event then further evaluation with neurology would be indicated and can be accomplished through primary care provider. This was successful with the patient and family who agree. Discharged home with return precautions. Patient verbalize understanding instructions and agreement with plan. Initial ECG Impression Date: Jul 27, 2019 Initial ECG Impression Time: 15:48 Initial ECG Rate: 95 Initial ECG Rhythm: Normal Sinus Initial ECG Comparisson: No Previous ECG Available Comment Sinus rhythm with left ventricular hypertrophy. No evidence of ST elevation [place]. Normal axis. Interpreted by me. Diagnostic Imaging Diagonstic Imaging: CT Plain Films/CT/US/NM/MRI: head Comments NAME: KEYSHA DIALLO MED REC#: [id number] PT STATUS: REG ER : 1980 PHYSICIAN: DAVID FROST MD ADMIT DATE: 07/27/19/ER Draft POSDate of Exam:07/27/19 CT HEAD WO PROCEDURE: CT head without contrast. TECHNIQUE: Multiple contiguous axial images were obtained through the brain without the use of intravenous contrast. Auto Exposure Controls were utilized during the CT exam to meet ALARA standards for radiation dose reduction. INDICATION: Headache and dizziness as well as blurred vision. COMPARISON: No prior studies are available for comparison. FINDINGS: The ventricles and sulci are within normal limits. No sulcal effacement, midline shift, or hemorrhage is detected. The cisterns are patent. The visualized paranasal sinuses are clear. IMPRESSION: No acute intracranial process is detected. Dictated on workstation # [id number] Dict: 07/27/19 1633 Trans: 07/27/19 1641 [id number] Interpreted by: ABDI YATES MD Electronically signed by: Reviewed: Reviewed by Me Departure Impression Primary Impression: Headache Qualified Codes: R51 - Headache Additional Impressions: Syncope Qualified Codes: R55 - Syncope and collapse Dehydration Disposition: 01 HOME, SELF-CARE Condition: Improved Departure-Patient Inst. Decision time for Depature: 17:48 Referrals: USMAN SHABAZZ MD (PCP/Family) Primary Care Physician Patient Instructions: Headache, Adult (DC), Syncope (Fainting), Dehydration, Adult (DC) Add. Discharge Instructions: All discharge instructions reviewed with patient and/or family. Voiced understanding. Drink plenty of fluids. Follow-up with your DrDora in a few days for recheck. Call his office in the morning. Return for worse pain, fever, vomiting, weakness, breathing problems or other concerns as needed. You should get plenty of rest and try to eat a normal diet. Scripts Ondansetron (Ondansetron Odt) 4 Mg Tab.rapdis 4 MG PO Q6H PRN for NAUSEA/VOMITING, #12 TAB 0 Refills Prov: DAVID FROST MD 07/27/19 Copy Copies To 1: USMAN SHABAZZ MD, TIMOTHY D MD Jul 27, 2019 16:59 POS
[2019-07-27] MEDS ORDERED: ONDA4TAB11 PO (17:50)
[2019-07-27 17:59] VITALS: BP 133/76
== END 2019-07-27 18:01 | disposition home or self-care (01) ==
LOC: EDUNIT# 15:21 → ER 15:21
DX: R51 Headache (principal); R55 Syncope and collapse; E86.0 Dehydration; F41.9 Anxiety disorder, unspecified; D64.9 Anemia, unspecified; Z88.2 Allergy status to sulfonamides; Z91.040 Latex allergy status; Z90.710 Acquired absence of both cervix and uterus; Z79.52 Long term (current) use of systemic steroids; Z82.49 Family history of ischemic heart disease and other diseases of the circulatory system
CPT/HCPCS: 36415; 70450; 80053; 80306; 81000; 83735; 84439; 84443; 85025; 85379; 85652; 86141; 87804; 93005; 93041

== ENCOUNTER → 2020-03-07 | Outpatient (CLI) | payer BC ==
[~2020-03-07] MED LIST changes: -MONT10TA24 PO; +MONT10TA26 PO; +ONDA4TAB11 PO
--- NOTE | 2020-03-07 10:28 | Diagnostic Imaging Report ---
PROCEDURE: CT head without contrast. TECHNIQUE: Multiple contiguous axial images were obtained through the brain without the use of intravenous contrast. Auto Exposure Controls were utilized during the CT exam to meet ALARA standards for radiation dose reduction. INDICATION: Status post fall last night, hitting left side of head in shower. CORRELATION: 07/27/2019 FINDINGS: There is no midline shift or mass effect. The ventricles and sulci are unremarkable. No evidence for acute intracranial hemorrhage, abnormal extra-axial fluid collections or cerebral edema is present. The basilar cisterns are unremarkable. The bony calvarium is intact. The visualized paranasal sinuses and mastoid air cells are clear. IMPRESSION: Negative for acute traumatic intracranial abnormality of the head. Dictated by: Dictated on workstation # [id number]
== END ==
LOC: RAD 09:54
PROVIDERS: ATTEND Family Medicine
DX: S06.0X0A Concussion without loss of consciousness, initial encounter (principal); S43.402A Unspecified sprain of left shoulder joint, initial encounter; I10 Essential (primary) hypertension; R55 Syncope and collapse; X58.XXXA Exposure to other specified factors, initial encounter; Y92.012 Bathroom of single-family (private) house as the place of occurrence of the external cause
CPT/HCPCS: 70450

== ENCOUNTER → 2020-04-14 | Outpatient (CLI) | payer BC, OTHER ==
--- NOTE | 2020-04-14 08:56 | Diagnostic Imaging Report ---
PROCEDURE: MRI left upper extremity without contrast. TECHNIQUE: Multiplanar, multisequence non contrast-enhanced MRI of the left upper extremity was accomplished. INDICATION: Left shoulder pain There are no prior studies for comparison. On the T2 fat-saturated coronal and sagittal images, there is a poorly defined area of abnormal signal within the anterior 3rd of the insertion of the rotator cuff. This area measures 7.9 x 6.0 x 7.7 mm in maximum transverse AP and longitudinal dimensions. This finding could be secondary to tendinosis alone. The possibility that there is a partial tear in this area should also be considered. The rotator cuff is otherwise intact. The supraspinatus muscle is not retracted or bunched. There is mild hypertrophy of the acromioclavicular joint and this does result in slight narrowing of the outlet for the supraspinous muscle. The biceps tendon and the subscapularis tendon are intact. The labrum is thinned essentially and there is a suggestion of a small tear in the midportion of the labrum (Image 13 series 3). If further evaluation is desired, then followup exam with intra-articular contrast would be recommended. There is no sign of a joint effusion. There is no abnormal signal arising from the osseous structures to suggest bone edema or fracture either. Impression: 1. The area of altered signal involving the anterior 3rd of the insertional rotator cuff may be secondary to tendinosis alone. The possibility that there is a small partial tear in this area should be considered as well. The rotator cuff is otherwise intact. 2. There is mild hypertrophy of the acromioclavicular joint and this does result in slight narrowing of the outlet for the supraspinous muscle. 3. There does appear to be a small labral tear centrally. Additional considerations as above. 4. There is no acute bony abnormality noted. Dictated by: Dictated on workstation # [id number]
== END ==
LOC: RAD 08:00
PROVIDERS: ATTEND Nurse Practitioner Family
DX: S43.422D Sprain of left rotator cuff capsule, subsequent encounter (principal); W01.10XD Fall on same level from slipping, tripping and stumbling with subsequent striking against unspecified object, subsequent encounter
CPT/HCPCS: 73221

== ENCOUNTER → 2020-05-31 | Outpatient (CLI) | payer OTHER, BC ==
[~2020-05-31] VITALS: Ht 167.7 cm; Wt 93.2 kg
[~2020-05-31] MED LIST changes: +GADOBUTROL 7.5 MMOL/7.5 ML (GADAVIST) VIAL IV ONE; +IOHEXOL 300 MG/ML 50 ML (OMNIPAQUE 300) VIAL IV ONE
--- NOTE | 2020-05-31 16:14 | Diagnostic Imaging Report ---
INDICATION: Left shoulder pain. PROCEDURE: Patient was brought to the procedure room and placed on table in a supine position. Skin of the left shoulder was prepped and draped in the usual sterile fashion. Small amount of 1% lidocaine was utilized for local anesthesia. A 22-gauge needle was advanced into the left shoulder at the rotator interval. A 15 mL solution of iodinated contrast, normal saline and gadolinium was injected under fluoroscopic observation. 12 seconds of fluoroscopic time was utilized. Needle was removed and hemostasis was obtained. Patient tolerated the procedure well and was sent to MRI in satisfactory condition. IMPRESSION: Left shoulder injection of gadolinium contrast solution using fluoroscopy, as described. Dictated by: Dictated on workstation # [id number]
--- NOTE | 2020-05-31 17:50 | Diagnostic Imaging Report ---
EXAMINATION: Magnetic resonance imaging of the left shoulder with intra-articular contrast. DATE: May 31, 2020. COMPARISON: Left shoulder arthrogram May 31, 2020. MRI left shoulder April 14, 2020. HISTORY: 39-year-old female, left shoulder pain after fall. TECHNIQUE: Magnetic Resonance Imaging sequences were performed of the shoulder following the intra-articular administration of contrast. FINDINGS: ROTATOR CUFF, LIGAMENTS, TENDONS, AND MUSCLES: There is mild supraspinatus tendinopathy. The infraspinatus, teres minor and subscapularis tendons are intact. There is normal rotator cuff muscle bulk and signal. LONG HEAD OF BICEPS: The long head of biceps tendon is small in caliber although intact and normally positioned within the bicipital groove. GLENOHUMERAL JOINT: The humeral head is well positioned relative to the glenoid. The labrum is intact. There is no identified paralabral cyst. The articular cartilage is grossly intact. There is extravasation of contrast below the axillary pouch. The posterior band of the inferior glenohumeral ligament complex is not well seen and may be torn. ACROMIOCLAVICULAR JOINT: The acromioclavicular joint is normally aligned. The coracoclavicular and coracoacromial ligaments are intact. There are mild acromioclavicular degenerative changes without undersurface osteophyte. BONE: There is no os acromiale. There is no Hill-Sachs deformity. The bone marrow signal is within normal limits. Specifically, negative for fracture, osteomyelitis, osteonecrosis or marrow replacing process. BURSAE AND SOFT TISSUES: The bursae and soft tissue surrounding the shoulder are unremarkable. IMPRESSION: 1. Supraspinatus tendinopathy. Negative for rotator cuff tendon tear. 2. Mild acromioclavicular degenerative changes without undersurface osteophyte. 3. Extravasation of contrast below the axillary pouch without identified intact posterior band of the inferior glenohumeral ligament complex which may be torn. 4. No Hill-Sachs deformity, acute fracture or bone contusion. 5. Intact labrum and unremarkable additional glenohumeral joint evaluation. Dictated by: Dictated on workstation # [id number]
== END ==
LOC: RAD 14:30
PROVIDERS: ATTEND Nurse Practitioner
DX: S43.432D Superior glenoid labrum lesion of left shoulder, subsequent encounter (principal); M75.82 Other shoulder lesions, left shoulder; M19.012 Primary osteoarthritis, left shoulder; X58.XXXD Exposure to other specified factors, subsequent encounter
CPT/HCPCS: 23350; 73040; 73222

== ENCOUNTER 2020-09-19 11:24 | Outpatient (RCR) | payer OTHER, BC ==
[~2020-09-19 11:24] MED LIST changes: -GADOBUTROL 7.5 MMOL/7.5 ML (GADAVIST) VIAL IV ONE; -IOHEXOL 300 MG/ML 50 ML (OMNIPAQUE 300) VIAL IV ONE; -MONT10TA26 PO; +MONT10TA97 PO
[2020-09-27] MEDS ORDERED: AMOX-358 PO (14:02)
== END 2020-10-10 15:30 | disposition home or self-care (01) ==
PROVIDERS: ATTEND Nurse Practitioner
DX: S43.432D Superior glenoid labrum lesion of left shoulder, subsequent encounter (principal); X58.XXXD Exposure to other specified factors, subsequent encounter

== ENCOUNTER → 2020-09-27 | Emergency (ER) | payer BC ==
[~2020-09-27] VITALS: Ht 167 cm; Wt 92.0 kg
[~2020-09-27] MED LIST changes: +AMOX-358 PO; +guaiFENesin SYRUP 100 MG/5 ML 10 ML (ROBITUSSIN SF) PO ONE
[2020-09-27 12:35] VITALS: BP 132/76
--- NOTE | 2020-09-27 12:56 | ED Cough/URI ---
General Chief Complaint: Respiratory Problems Stated Complaint: COVID + Nursing Triage Note: ARRIVED VIA AMB WITH COMPLAINTS OF INCREASED SOA, COUGH, SINUS PRESSURE. STATES SHE STARTED SX ON FRI AND TESTED POSITIVE ON FRIDAY. PT IS ALSO FLU POSITIVE. Sepsis Screen: No Definite Risk Source: patient Exam Limitations: no limitations History of Present Illness Date Seen by Provider: Sep 27, 2020 Time Seen by Provider: 12:45 Initial Comments This is a well-appearing 39-year-old female presents to the ER for complaints of persistent cough. States that she tested positive for COVID on September 21. Last night she took a decongestant for all of her sinus drainage, and this seemed to make her cough worse. Does note she has a history of asthma and uses her inhaler every 4-6 hours as needed. She denies fevers, feeling short of breath, headache, chest pain, nausea, vomiting, diarrhea, abdominal pain. States received a Z-pack, Medrol dose pack, and instructed to take baby aspirin daily per her PCP. States she is taking zinc and vitamin D [id number]. Allergies and Home Medications Allergies Coded Allergies: Sulfa (Sulfonamide Antibiotics) (Verified Allergy, Unknown, 12/24/07) latex (Unverified Allergy, Unknown, 04/14/20) Home Medications Amoxicillin/Potassium Clav 1 Each Tablet, 1 EACH PO BID Prescribed by: MATILDA HINDS on 09/27/20 1402 Cetirizine HCl 10 Mg Tablet, 10 MG PO DAILY, (Reported) Cholecalciferol (Vitamin D3) 2,000 Unit Tablet, 4,000 UNIT PO DAILY, (Reported) take 2 (2,000unit) tabs Docusate Sodium 100 Mg Capsule, 100 MG PO BID PRN for CONSTIPATION-1ST LINE Prescribed by: MARICARMEN HOLDER on 04/01/19726 Ferrous Sulfate 325 Mg Tablet.dr, 325 MG PO DAILY, (Reported) Hydrocodone Bit/Acetaminophen 1 Ea Tablet, 2 EA PO Q6H PRN for Pain-See Instructions Prescribed by: MARICARMEN HOLDER on 04/01/19726 Ibuprofen 600 Mg Tablet, 600 MG PO Q6H PRN for PAIN-MODERATE Prescribed by: MARICARMEN HOLDER on 04/01/19726 Montelukast Sodium 10 Mg Tablet, 10 MG PO HS, (Reported) Multivit with Calcium,Iron,Min 1 Each Tablet, 1 EACH PO DAILY, (Reported) Ondansetron 4 Mg Tab.rapdis, 4 MG PO Q6H PRN for NAUSEA/VOMITING Prescribed by: DAVID FROST on 07/27/19 175 Prednisone 10 Mg Tab, 1 TAB PO UD Take 4 tabs daily for 2 days, then 3 tabs daily for 2 days, then 2 tabs daily for 2 days, then 1 tab daily Prescribed by: JON ORTIZ on 04/10/19 174 Simethicone 80 Mg Tab.chew, 40 MG PO TID PRN for INDIGESTION 2ND LINE Prescribed by: MARICARMEN HOLDER on 04/01/19 0727 Patient Home Medication List Home Medication List Reviewed: Yes Review of Systems Review of Systems Constitutional: see HPI EENTM: nose congestion, nose pain; No mouth pain, No throat pain, No throat swelling Respiratory: cough; No short of breath Gastrointestinal: no symptoms reported Genitourinary: no symptoms reported Musculoskeletal: no symptoms reported Skin: no symptoms reported Psychiatric/Neurological: No Symptoms Reported Hematologic/Lymphatic: No Symptoms Reported Immunological/Allergic: no symptoms reported Past [place]-Mxctin-Xqtggb Hx Patient Social History Alcohol Use: Denies Use Smoking Status: Never a Smoker 2nd Hand Smoke Exposure: No Recent Infectious Disease Expo: No Recent Hopitalizations: No Immunizations Up To Date Tetanus Booster (TDap): Less than 5yrs PED Vaccines UTD: Yes Seasonal Allergies Seasonal Allergies: Yes Past Medical History Surgeries: Yes (WISDOM TEETH AND APICECTOMY) Gallbladder, Hysterectomy Respiratory: No Cardiac: No Neurological: No Reproductive Disorders: No 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 0.0oz. [id number]; 32.00 BMI Method:Stated General Appearance: WD/WN, no apparent distress Eyes: Bilateral Eye Normal Inspection, Bilateral Eye PERRL, Bilateral Eye EOMI HEENT: PERRL/EOMI, normal ENT inspection, TMs normal, pharynx normal Neck: non-tender, full range of motion, normal inspection Respiratory: chest non-tender, lungs clear, no respiratory distress, no accessory muscle use, decreased breath sounds Cardiovascular: normal peripheral pulses, regular rate, rhythm, no edema, no murmur Gastrointestinal: normal bowel sounds, non tender, soft Extremities: normal range of motion, normal inspection Neurologic/Psychiatric: no motor/sensory deficits, alert, normal mood/affect, oriented x 3 Skin: normal color, warm/dry Progress/Results/Core Measures Suspected Sepsis Recent Fever Within 48 Hours: Yes Infection Criteria Present: Documented Infection New/Unexplained Altered Menta: No Sepsis Screen: No Definite Risk SIRS Temperature: Pulse: 88 Respiratory Rate: 16 Laboratory Tests 09/27/20 13:14: White Blood Count 12.2H Blood Pressure 132 /76 Mean: 94 Laboratory Tests 09/27/20 13:14: Creatinine 0.84, Platelet Count 264, Total Bilirubin 0.5 Results/Orders Lab Results Laboratory Tests Test 09/27/20 13:14 Range/Units White Blood Count 12.2 H 4.3-11.0 10^3/uL Red Blood Count 4.06 3.80-5.11 10^6/uL Hemoglobin 13.0 11.5-16.0 g/dL Hematocrit 36 35-52 % Mean Corpuscular Volume 89 80-99 fL Mean Corpuscular Hemoglobin 32 25-34 pg Mean Corpuscular Hemoglobin Concent 36 32-36 g/dL Red Cell Distribution Width 11.6 10.0-14.5 % Platelet Count 264 130-400 10^3/uL Mean Platelet Volume 10.7 9.0-12.2 fL Immature Granulocyte % (Auto) 1 % Neutrophils (%) (Auto) 77 H 42-75 % Lymphocytes (%) (Auto) 11 L 12-44 % Monocytes (%) (Auto) 11 0-12 % Eosinophils (%) (Auto) 0 0-10 % Basophils (%) (Auto) 0 0-10 % Neutrophils # (Auto) 9.4 H 1.8-7.8 10^3/uL Lymphocytes # (Auto) 1.3 1.0-4.0 10^3/uL Monocytes # (Auto) 1.3 H 0.0-1.0 10^3/uL Eosinophils # (Auto) 0.0 0.0-0.3 10^3/uL Basophils # (Auto) 0.0 0.0-0.1 10^3/uL Immature Granulocyte # (Auto) 0.1 0.0-0.1 10^3/uL Sodium Level 138 135-145 MMOL/L Potassium Level 3.5 L 3.6-5.0 MMOL/L Chloride Level 107 98-107 MMOL/L Carbon Dioxide Level 19 L 21-32 MMOL/L Anion Gap 12 5-14 MMOL/L Blood Urea Nitrogen 18 7-18 MG/DL Creatinine 0.84 0.60-1.30 MG/DL Estimat Glomerular Filtration Rate > 60 BUN/Creatinine Ratio 21 Glucose Level 110 H 70-105 MG/DL Calcium Level 8.9 8.5-10.1 MG/DL Corrected Calcium 8.7 8.5-10.1 MG/DL Total Bilirubin 0.5 0.1-1.0 MG/DL Aspartate Amino Transf (AST/SGOT) 14 5-34 U/L Alanine Aminotransferase (ALT/SGPT) 26 0-55 U/L Alkaline Phosphatase 60 40-136 U/L Total Protein 7.0 6.4-8.2 GM/DL Albumin 4.2 3.2-4.5 GM/DL My Orders Orders - MATILDA HINDS APRN Cbc With Automated Diff (09/27/20 12:56) Comprehensive Metabolic Panel (09/27/20 12:56) Chest 1 View, Ap/Pa Only (09/27/20 12:56) Guaifenesin Sf Syrup (Robitussin Sf Syru (09/27/20 13:00) Medications Given in ED Current Medications Medications Dose Ordered Sig/Dahiana Route Start Time Stop Time Status Last Admin Dose Admin Guaifenesin 100 mg ONCE ONCE PO 09/27/20 13:00 09/27/20 13:01 DC 09/27/20 13:23 100 MG Vital Signs/I&O 09/27/20 12:35 Temp 37.3 Pulse 88 Resp 16 B/P (MAP) 132/76 (94) Pulse Ox 97 O2 Delivery Room Air Capillary Refill : Less Than 3 Seconds Blood Pressure Mean: 94 Progress Note : Progress Note This is a well-appearing 39 year-old female. She was examined upon arrival. Her oxygen saturation was 97, 98% on room air. She was not tachypneic and her vital signs are stable. Will plan to check basic labs and chest x-ray. Cough syrup ordered. Labs reviewed, WBC 12.2, K-3.5. CXR clear. Based on exam and history, she may likely have has sinusitis as well. Discussed using home remedies such as a spoonful of honey for cough and humidifier as she appeared hesitant to take anything [id number]. States she has taken Augmentin in the past without issue. Reviewed discharge plan and she is agreeable with plan. Diagnostic Imaging Diagonstic Imaging: Xray Plain Films/CT/US/NM/MRI: chest Comments NAME: KEYSHA DIALLO [facility] REC#: [id number] PT STATUS: REG ER : 1980 PHYSICIAN: MATILDA HINDS MOBILE APPLICATION ARCHITECT ADMIT DATE: 09/27/20/ER Draft Date of Exam:09/27/20 CHEST 1 VIEW, AP/PA ONLY INDICATION: Cough. Single AP view of the chest is obtained with comparison made to study of 10/24/2011. FINDINGS: Heart size and pulmonary vascularity are within normal limits, and the lungs are clear, bilaterally. IMPRESSION: Unremarkable chest. Dictated on workstation # [id number] Dict: 09/27/20 1315 Trans: 09/27/20 1317 [facility] [id number] Interpreted by: OMER LARRY MD Electronically signed by: Departure Impression Primary Impression: COVID-19 Additional Impression: Sinusitis Disposition: HOME, SELF-CARE Condition: Stable/Unchanged Departure-Patient Inst. Decision time for Depature: 13:58 Referrals: MARICARMEN VICTORIA MD (PCP/Family) Primary Care Physician Patient Instructions: Sinusitis, Adult (DC) Add. Discharge Instructions: Plan: 1. Discharge home. Take antibiotics as directed and complete full course. 2. May take Tylenol or Ibuprofen as needed for fever per package instructions. 3. May use humidifier at home to help with congestion. May use spoonful of honey or throat lozenges for cough. 4. Return for any new or concerning symptoms. All discharge instructions reviewed with patient and/or family. Voiced understanding. Scripts Amoxicillin/Potassium Clav (Augmentin 875-125 Tablet) 1 Each Tablet 1 EACH PO BID for 10 Days, #14 TAB 0 Refills Prov: MATILDA HINDS MOBILE APPLICATION ARCHITECT 09/27/20 MATILDA HINDS MOBILE APPLICATION ARCHITECT Sep 27, 2020 12:55
--- NOTE | 2020-09-27 13:18 | Diagnostic Imaging Report ---
INDICATION: Cough. Single AP view of the chest is obtained with comparison made to study of 10/24/2011. FINDINGS: Heart size and pulmonary vascularity are within normal limits, and the lungs are clear, bilaterally. IMPRESSION: Unremarkable chest. Dictated by: Dictated on workstation # [id number]
[2020-09-27 13:28] LABS: BASOPHILS % (AUTO) 0 % (0-10); EOSINOPHILS % (AUTO) 0 % (0-10); HEMATOCRIT 36 % (35-52); LYMPHOCYTES # (AUTO) 1.3 10^3/uL (1.0-4.0); LYMPHOCYTES % (AUTO) 11 % (12-44); MEAN CORPUSCULAR HEMOGLOBIN 32 pg (25-34); MEAN CORPUSCULAR HGB CONC 36 g/dL (32-36); MEAN CORPUSCULAR VOLUME 89 fL (80-99); MEAN PLATELET VOLUME 10.7 fL (9.0-12.2); MONOCYTES # (AUTO) 1.3 10^3/uL (0.0-1.0); MONOCYTES % (AUTO) 11 % (0-12); NEUTROPHILS # (AUTO) 9.4 10^3/uL (1.8-7.8); NEUTROPHILS % (AUTO) 77 % (42-75); PLATELET COUNT 264 10^3/uL (130-400); WHITE BLOOD COUNT 12.2 10^3/uL (4.3-11.0)
[2020-09-27 13:37] LABS: ALBUMIN 4.2 GM/DL (3.2-4.5); CHLORIDE 107 MMOL/L (98-107); POTASSIUM 3.5 MMOL/L (3.6-5.0); SODIUM 138 MMOL/L (135-145)
[2020-09-27 13:39] LABS: CALCIUM 8.9 MG/DL (8.5-10.1)
[2020-09-27 13:40] LABS: GLUCOSE 110 MG/DL (70-105)
[2020-09-27 13:41] LABS: CARBON DIOXIDE 19 MMOL/L (21-32)
[2020-09-27 13:42] LABS: BILIRUBIN,TOTAL 0.5 MG/DL (0.1-1.0)
[2020-09-27 13:43] LABS: ALKALINE PHOSPHATASE 60 U/L (40-136); CREATININE SERUM 0.84 MG/DL (0.60-1.30); GFR ESTIMATED > 60
[2020-09-27 13:44] LABS: BUN/CREATININE RATIO 21
[2020-09-27 13:46] LABS: ALANINE AMINOTRANSFERASE 26 U/L (0-55)
== END ==
LOC: EDUNIT# 12:30 → ER 12:32
DX: U07.1 COVID-19 (principal); J32.9 Chronic sinusitis, unspecified; Z88.2 Allergy status to sulfonamides; Z91.040 Latex allergy status; Z82.49 Family history of ischemic heart disease and other diseases of the circulatory system; Z79.52 Long term (current) use of systemic steroids
CPT/HCPCS: 36415; 71045; 80053; 85025

== ENCOUNTER → 2020-10-24 | Outpatient (CLI) | payer BC ==
[~2020-10-24] MED LIST changes: -guaiFENesin SYRUP 100 MG/5 ML 10 ML (ROBITUSSIN SF) PO ONE
--- NOTE | 2020-10-24 16:46 | Diagnostic Imaging Report ---
PROCEDURE: US right lower extremity venous. TECHNIQUE: Multiple real-time grayscale images were obtained over the right lower extremity in various projections. Additional spectral analysis and color Doppler duplex images were also obtained. INDICATION: Right inner thigh pain. Comparison: Non available. Findings: The right common femoral, femoral and popliteal veins are patent by color doppler imaging and without DVT. Visualized proximal aspects of the greater saphenous, deep femoral, posterior tibial and peroneal veins are also patent. All of the evaluated deep venous structures demonstrate normal compressibility and waveform augmentation where applicable. Impression: No right lower extremity deep venous thrombosis (DVT). Dictated by: Dictated on workstation # [id number]
== END ==
LOC: RAD 15:34
PROVIDERS: ATTEND Family Medicine
DX: M79.651 Pain in right thigh (principal)

== ENCOUNTER → 2022-03-07 | Outpatient (CLI) | payer BC ==
[~2022-03-07] MED LIST changes: +MONT-40 PO; -MONT10TA97 PO
--- NOTE | 2022-03-07 10:00 | Diagnostic Imaging Report ---
PROCEDURE: US Thyroid. TECHNIQUE: Multiple real-time grayscale images were obtained of the thyroid in various projections. INDICATION: Autoimmune thyroiditis. Right lobe of the thyroid measures 5.8 x 1.8 x 1.7 cm and left lobe measures 4.8 x 1.3 x 1.4 cm. Isthmus is 5 mm in thickness. Right lobe of thyroid does contain a circumscribed hypoechoic nodule in the upper portion measuring 8 mm x 7 mm x 6 mm. There are punctate echogenic foci which may represent microcalcifications. No other thyroid nodules are identified. Left lobe is unremarkable. IMPRESSION: Subcentimeter right lobe thyroid nodule with questionable microcalcifications. This is TR 5. Due to its size of less than 1 cm, annual follow-up for 5 years is recommended to show continued stability. Dictated by: Dictated on workstation # [id number]
== END ==
LOC: RAD 08:30
PROVIDERS: ATTEND Nurse Practitioner Family
DX: Z01.89 Encounter for other specified special examinations (principal); E04.1 Nontoxic single thyroid nodule; E06.3 Autoimmune thyroiditis; R06.02 Shortness of breath; R53.83 Other fatigue; R42 Dizziness and giddiness; E78.49 Other hyperlipidemia; Z76.0 Encounter for issue of repeat prescription; Z71.3 Dietary counseling and surveillance; R60.0 Localized edema
CPT/HCPCS: 76536

== ENCOUNTER → 2022-03-14 | Outpatient (RCR) | payer BC | END | disposition home or self-care (01) | PROVIDERS: ATTEND Nurse Practitioner Family | DX: S83.8X2D Sprain of other specified parts of left knee, subsequent encounter (principal); X58.XXXD Exposure to other specified factors, subsequent encounter ==

== ENCOUNTER → 2022-03-14 | Outpatient (CLI) | payer BC ==
--- NOTE | 2022-03-14 10:19 | Diagnostic Imaging Report ---
Indication: Routine screening. Comparison is made with prior mammogram 08/14/2011. 2-D and 3-D bilateral screening mammography was performed with CAD. CAD is utilized. The current study was also evaluated with a Computer Aided Detection (CAD) system. Both breasts are heterogeneously dense, limiting the sensitivity of mammography. The parenchymal pattern is stable. No mass or malignant-appearing microcalcifications are seen. Axillae are unremarkable. IMPRESSION: BI-RADS Category 1 No mammographic features suspicious for malignancy are identified. ACR BI-RADS Category 1: Negative. Result letter will be mailed to the patient. Note: At least 10% of breast cancer is not imaged by mammography. Dictated by: Dictated on workstation # [id number]
== END ==
LOC: RAD 07:45
PROVIDERS: ATTEND Obstetrics & Gynecology
DX: Z12.31 Encounter for screening mammogram for malignant neoplasm of breast (principal)
CPT/HCPCS: 77063; 77067

== ENCOUNTER 2022-04-05 11:36 | Outpatient (RCR) | payer BC | END 2022-04-14 | disposition home or self-care (01) | PROVIDERS: ATTEND Nurse Practitioner Family | DX: S83.8X2D Sprain of other specified parts of left knee, subsequent encounter (principal); X58.XXXD Exposure to other specified factors, subsequent encounter; M25.662 Stiffness of left knee, not elsewhere classified; Z71.3 Dietary counseling and surveillance; R60.0 Localized edema; E78.49 Other hyperlipidemia; E66.8 Other obesity ==

== ENCOUNTER → 2023-04-14 | Outpatient (CLI) | payer BC ==
--- NOTE | 2023-04-14 10:40 | Diagnostic Imaging Report ---
INDICATION: Routine screening. COMPARISON: 03/14/2022. TECHNIQUE: 2D and 3D bilateral screening mammography was performed with CAD. FINDINGS: Both breasts are heterogeneously dense, limiting the sensitivity of mammography. The parenchymal pattern is stable. No mass or malignant-appearing microcalcifications are seen. The axillae are unremarkable. IMPRESSION: No mammographic features suspicious for malignancy are identified. ACR BI-RADS Category 1: Negative. Result letter will be mailed to the patient. Note: At least 10% of breast cancer is not imaged by mammography. Dictated by: Dictated on workstation # [id number]
== END ==
LOC: RAD 07:45
PROVIDERS: ATTEND Nurse Practitioner Women's Health
DX: Z12.31 Encounter for screening mammogram for malignant neoplasm of breast (principal)
CPT/HCPCS: 77063; 77067